=== PATIENT | female | born 1980 | race Asian ===

== ENCOUNTER 2019-07-13 12:01 | Emergency (ER) | payer OTHER ==
[~2019-07-13 12:01] MED LIST: diPHENhydraMINE IV* 50 MG/ML 1 ml VIAL (BENADRYL) ONE; methylPREDNISolone 125 MG* 2 ML VIAL ONE
[2019-07-13] MEDS ORDERED: NS 0.9% 1000 ML** 1,000 ML IV ONE (12:04)
[2019-07-13] MEDS ORDERED: Famotidine IV* 10 MG/ML 2 ML (20 mg) IV SLOW PU ONE (12:12)
--- NOTE | 2019-07-13 12:14 | ED ---
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 Pt was walking with her friend when she collapsed and became minimally responsive. Pt endorses abd pain but denies trouble breathing. Per EMS, she was also hypoxic and hypotensive, and she developed hives after EMS arrival. 0.9mg epinephrine was given by EMS. 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 Pt was seen in 2016 for a similar episode thought to be allergy mediated syncope. Hx of hypothyroidism noted. 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 - History of Current Complaint Hx Obtained From: Patient, EMS Onset/Duration: Still Present Severity Currently: None Pain Intensity: 0 Pain Scale Used: 0-10 Numeric Character: Hives Associated Signs And Symptoms: Positive: Abdominal Pain, Other: - hypoxia, hypotension. Negative: Difficulty Breathing - Allergies/Home Medications Allergies/Adverse Reactions: Allergies Allergy/AdvReac Type Severity Reaction Status Date / Time No Known Allergies Allergy Verified 01/13/16 16:46 Home Medications: Home Medications Levothyroxine TAB* [Synthroid 100 MCG TAB*] 100 mcg PO DAILY 01/13/16 [History Confirmed 01/13/16] Loratadine [Allergy Relief] 10 mg PO DAILY #30 tab 01/14/16 [Rx] Montelukast Sodium TAB* [Singulair TAB*] 10 mg PO BEDTIME #30 tab 01/14/16 [Rx] EPINEPHrine [Epipen 2-Reagan] 0.3 mg IJ ONCE 1 Days #1 auto.injct 07/13/19 [Rx] PMH/Surg Hx/FS Hx/Imm Hx Endocrine/Hematology History: Reports: Hx Thyroid Disease - Hypo Sensory History: Reports: Hx Contacts or Glasses Opthamlomology History: Reports: Hx Contacts or Glasses - Family History Known Family History: Positive: None - Pt denies - Social History Alcohol Use: None Hx Substance Use: No Substance Use Type: Reports: None Hx Tobacco Use: No Smoking Status (MU): Never Smoked Tobacco Review of Systems Positive: Other - hypotension Respiratory: Other - negative - dyspnea Positive: Other - hypoxia Positive: Abdominal Pain Positive: Other - hives All Other Systems Reviewed And Are Negative: Yes Physical Exam - Summary Physical Exam Summary: Constitutional: Somnolent. (-) Distressed Skin: Warm, Dry. Diffuse urticaria. HENT: Periorbital swelling; Atraumatic Eyes: Conjunctiva normal Neck: Musculoskeletal ROM normal neck. (-) JVD, (-) Stridor, (-) Nuchal rigidity Cardio: Rhythm regular, rate normal, Heart sounds normal; Intact distal pulses; Radial pulses are 2+ and symmetric. (-) Murmur Pulmonary/Chest wall: Effort normal. (-) Respiratory distress, (-) Wheezes, (-) Rales Abd: Soft, (+) General tenderness, (-) Distension, (-) Guarding, (-) Rebound Musculoskeletal: (-) Edema Lymph: (-) Cervical adenopathy Neuro: Alert, Oriented x3 Psych: Mood and affect Normal Triage Information Reviewed: Yes Vital Signs Reviewed: Yes Procedures - Sedation Patient Received Moderate/Deep Sedation with Procedure: No Diagnostics - Laboratory Result Diagrams: 07/13/19 12:06 07/13/19 12:06 Lab Statement: Any lab studies that have been ordered have been reviewed, and results considered in the medical decision making process. - Radiology CXR Radiology Interpretation Completed By: Radiologist Summary of Radiographic Findings: IMPRESSION: NO ACUTE CARDIOPULMONARY PROCESS BY RADIOGRAPH. This report was reviewed by the ED physician. - EKG 1256 Cardiac Rate: NL EKG Rhythm: Sinus Rhythm ST Segment: Normal Summary of EKG Findings: An EKG at 1256 reveals normal sinus rhythm at 77bpm, nml axis, nml intervals. T wave inversions in lead III. No STEMI. No acute changes. ED physician has reviewed and interpreted this EKG. Re-Evaluation - Re-Evaluation First Eval Re-Evaluation Time: 13:55 Change: Improved - resting, NAD. Labs unremarkable aside from slightly elevated TSH and free t4 Second Eval Re-Evaluation Time: 16:00 Change: Improved - patient feels back to normal. Ambulated in ED Allergic Reaction Course/Dx - Course Course Of Treatment: 38 y/o F p/w syncopal episode and possible allergic rxn. - hx similar, diffuse hives. S/p epix3. BP stable. Given solumedrol, fluids. Will check labs, EKG, CXR for reported hypoxia. - labs unremarkable aside from elevated TSH/T4 known hypothyroid on medications. CXR neg. EKG sinus. No hypoxia noted. Suspect similar presentation as before (had unremarkable workup) . - d dimer negative, wells low risk, do not suspect acute cardiac process for syncopal eposide. HCG negative. - Diagnoses Provider Diagnoses: Syncope, Anaphylaxis - Critical Care Time Critical Care Statement: Critical care time is provided exclusive of any time spent performing procedures. Discharge ED - Sign-Out/Discharge Documenting (check all that apply): Patient Departure - dc - Discharge Plan Condition: Stable Disposition: HOME Prescriptions: EPINEPHrine [Epipen 2-Reagan] 0.3 mg IJ ONCE 1 Days #1 auto.injct Referrals: [facility] - Phil HINKLE [Primary Care Provider] - Additional Instructions: Carry an EPI-PEN (or similar device) WITH YOU AT ALL TIMES. You should keep one on your person at ALL TIMES. Keep one in your wallet, purse, or pocket, one at home, one at work, and one in your car. If you feel symptoms of another allergic reaction coming on- use the EPI-PEN IMMEDIATELY and then call 911. DO NOT WAIT TO INJECT YOURSELF IF YOU HAVE SYMPTOMS- THE DELAY COULD BE FATAL. IF YOU HAVE ANY DOUBT, it is better to inject yourself rather than wait. If you still have symptoms 5 minutes after giving yourself an EPI-PEN, give yourself a second epi-pen injection. Make sure to check the expiration dates on your epi- pen and refill them BEFORE they . You were seen in the emergency department for allergic reaction and syncope. Please EpiPen if you feel these symptoms coming on again. Please follow up with her primary care doctor. If any studies were not completed at the time of discharge you will be called with the relevant results. Please follow up with your primary care doctor in next 2-3 days and return to emergency department for passing out, chest pain, trouble breathing, worsening or concerning symptoms. It was a pleasure taking care of you today. - Billing Disposition and Condition Condition: STABLE Disposition: Home - Attestation Statements Document Initiated by Scribe: Yes Documenting Scribe: Brendan Browne Provider For Whom Samane is Documenting (Include Credential): Alvina Graves MD Scribe Attestation: I, Brendan Browne, scribed for Alvina Graves MD on 07/13/19 at 1605. Scribe Documentation Reviewed: Yes Provider Attestation: The documentation as recorded by the scribe, Brendan Browne accurately reflects the service I personally performed and the decisions made by me, Alvina Graves MD Status of Scribe Document: Viewed
[2019-07-13 12:16] LABS: Hematocrit 42 % (35-47); Hemoglobin 14.6 g/dL (12.0-16.0); Mean Corpuscular HGB Conc 34 g/dL (31-36); Mean Corpuscular Hemoglobin 31 pg (27-31); Mean Corpuscular Volume 91 fL (80-97); Mean Platelet Volume 7.9 fL (7.4-10.4); Platelet Count 284 10^3/uL (150-450); Red Blood Count 4.64 10^6 /uL (3.70-4.87); Red Cell Distribution Width 13 % (10-15); White Blood Count 8.1 10^3/uL (3.5-10.8)
[2019-07-13 12:24] LABS: ABS Eosinophils 0.1 10^3/ul (0-0.6); ABS Lymphocytes 4.7 10^3/ul (1.0-4.8); ABS Monocytes 0.5 10^3/ul (0-0.8); ABS Neutrophils 2.8 10^3/ul (1.5-7.7); Eosinophil % 0.7 %; Lymphocyte % 58.1 %; Nucleated Red Blood Cells % 0.1
[2019-07-13 12:33] LABS: ALT 8 U/L (7-52); Albumin 3.5 g/dL (3.2-5.2); Albumin/Globulin Ratio 1.3 (1-3); Alkaline Phosphatase 33 U/L (34-104); BUN/Creatinine Ratio 18.3 (8-20); Blood Urea Nitrogen 15 mg/dL (6-24); CO2 Carbon Dioxide 22 mmol/L (22-32); Calcium 8.2 mg/dL (8.6-10.3); Chloride 104 mmol/L (101-111); EGFR African American 93.4 (>60); EGFR Non-African American 77.2 (>60); Globulin 2.6 g/dL (2-4); Glucose 186 mg/dL (70-100); Sodium 136 mmol/L (135-145); Total Protein 6.1 g/dL (6.4-8.9)
[2019-07-13 12:36] LABS: Anion Gap 10 mmol/L (2-11)
[2019-07-13 12:40] LABS: HCG Pregnancy < 0.60 mIU/mL
[2019-07-13 13:11] LABS: TSH (Thyroid Stimulating Horm) 8.02 mcIU/mL (0.34-5.60)
[2019-07-13 13:13] LABS: Free T4 1.14 ng/dL (0.61-1.12)
[2019-07-13 16:12] VITALS: BP 101/59
== END 2019-07-13 16:11 | disposition home or self-care (01) ==
LOC: ED 12:01
DX: T78.2XXA Anaphylactic shock, unspecified, initial encounter (principal); R10.9 Unspecified abdominal pain; R09.02 Hypoxemia; I95.9 Hypotension, unspecified; R55 Syncope and collapse; L50.9 Urticaria, unspecified; E03.9 Hypothyroidism, unspecified; Z79.890 Hormone replacement therapy; Z79.899 Other long term (current) drug therapy
CPT/HCPCS: 36415; 71045; 80053; 84439; 84443; 84702; 85025; 85060; 85379; 86308; 93005; 96361; 96374; 99283; J1200; J2930